=== PATIENT | male | born 1985 | race Asian ===

== ENCOUNTER 2023-09-12 08:10 | Outpatient (CLI) | payer MEDICAID | END 2023-09-12 23:59 | disposition home or self-care (01) | LOC: RAD 08:10 | PROVIDERS: ATTEND Family Medicine | DX: N28.1 Cyst of kidney, acquired (principal); K80.80 Other cholelithiasis without obstruction; R10.31 Right lower quadrant pain | CPT/HCPCS: 76700 ==